=== PATIENT | female | born 2000 | race Caucasian/White ===

== ENCOUNTER 2025-04-20 02:47 | Emergency (ER) | payer MEDICAID, SELFPAY ==
[2025-04-20 02:47] VITALS: BP 134/86; PULSE 110; RESP 20; TEMP 36.7; O2SAT 98
[2025-04-20 02:48] VITALS: BMI 31.7
--- NOTE | 2025-04-20 03:29 | PD.EDUPEX ---
Upper Extremity Injury RME/HPI General Chief Complaint: Extremity Injury, Upper Stated Complaint: NON TRAUMATIC LEFT SHOULDER PAIN Time Seen by Provider: 04/20/25 03:26 Arrival date/time: 04/20/25 02:47 24F with history of psych presents to ED with L shoulder/neck pain w/o fall/trauma. Patient states she had a panic attack earlier today and her boyfriend made her stretch there to calm her down. Pain is worse with movement. Limitations: no limitations Related Data Home Medications ?Medication ?Instructions ?Recorded ?Confirmed Vitamin * 1 tab PO QDAY #0 tabs 05/16/17 08/06/17 Previous Rx's ?Medication ?Instructions ?Recorded baclofen 5 mg tablet 5 mg PO BID PRN muscle spasm #14 04/20/25 tabs Allergies Allergy/AdvReac Type Severity Reaction Status Date / Time cephalexin Allergy Intermediate HIVES Verified 01/18/23 14:29 Review of Systems Review of Systems Systems Reviewed: All systems reviewed, normal except as documented Musculoskeletal Musculoskeletal: Reports as per HPI and Reports arthralgias Past Medical History Past Medical History NEUROLOGIC: Negative Neurological Disorders CARDIAC: Negative Cardiac Disorders RESPIRATORY: Negative Asthma GASTROINTESTINAL: Negative Gastrointestinal Disorders, Hepatitis or Colorectal Cancer GENITOURINARY: Negative Genitourinary Disorders, Renal Disease or Prostate Cancer REPRODUCTIVE: Negative Breast Cancer, Endometriosis, Pelvic Inflammatory Disease, Previous Pregnancies, Testicular Cancer or Uterine Prolapse MUSCULOSKELETAL: Positive Musculoskeletal Disorders and Fractures (COLLARBONE, LEFT WRIST); Negative Bone Cancer ENDOCRINE: Positive Endocrine Disorders and Hypoglycemia (NO MEDS); Negative Diabetes Mellitus Type 2 HEMATOLOGIC: Negative Blood Disorders or Sickle Cell Disease PSYCHO/SOCIAL: Positive Depression (WAS ON PROZAC AND ZOLOFT BUT NOT CURRENTLY) and Anxiety OTHER HISTORY: Positive Falls (MORE THAN 5 YEARS AGO); Negative Autoimmune Disease, Down Syndrome, Developmental Delay, Blood Transfusions, Blood Transfusion Reaction, Anesthesia Reactions, Organ Transplant, Chemotherapy, Radiation Therapy, Hyperbaric Therapy, MRSA, VRSA, Vancomycin-Resistant Enterococci, Human Immunodeficiency Virus (HIV), Chicken Pox, Measles, Mumps, Rubella ([place] Measles), Pertussis, Clostridium Difficile, Breast Cancer, Cervical Cancer, Colorectal Cancer, Lung Cancer, Ovarian Cancer, Prostate Cancer or Testicular Cancer Family History FAMILY HISTORY: Positive Family Psychiatric Problems (MOTHER/BIPOLAR) and Family Respiratory Disorders (ASTHMA); Negative Family Cardiac Disorders, Family Gastrointestinal Problems, Family Cancer, Family Surgery or Family Anesthesia Reaction Surgical History SURGICAL: Negative Section or Organ Transplant Social History SMOKING STATUS: Current every day smoker ED Exam General Limitations: Present no limitations General appearance: Present alert and in no apparent distress Head Head exam: Present atraumatic Neck Neck exam: Present normal inspection, full ROM and trachea midline Chest Chest inspection: Present normal inspection and symmetric chest wall rise Neurological Exam Neurological exam: Present alert and oriented X3 Psychiatric Psychiatric exam: Present normal affect and normal mood Skin Skin exam: Present warm, dry, intact and normal color Course Quality Measures none Orders Category Date Time Status Baclofen [Lioresal] Med 04/20/25 03:27 Discontinued 10 mg PO X1 ONE HYDROcodone*/APAP 5/325 [[place] 5/325] Med 04/20/25 03:27 Discontinued 1 tab PO X1 ONE Vital Signs Vital signs: Vital Signs Temperature 98.0 F 04/20/25 02:47 Pulse Rate 110 H 04/20/25 02:47 Respiratory Rate 20 04/20/25 02:47 Blood Pressure 134/86 H 04/20/25 02:47 Pulse Oximetry (%) 98 04/20/25 02:47 Oxygen Delivery Method Room Air 04/20/25 02:47 O2 at 98% on RA and WNLs Extremity Injury MDM Narrative MDM Narrative:: 24F with history of psych presents to ED with L shoulder/neck pain w/o fall/trauma. Patient states she had a panic attack earlier today and her boyfriend made her stretch there to calm her down. Pain is worse with movement. Physical exam reveals well-appearing female. No skin redness per patient. Normal WOB. Speech normal. Patient is afebrile, calm, and alert. Meds and chief counsel given. Patient data External records reviewed:: [facility] previous records Clinical information provided by:: patient Social determinants that could affect healthcare access:: mental health Patient has the following chronic illnesses:: panic disoder How is presenting disease/condition affected by chronic disease/condition?: exacerbated by Evaluation data The following diagnostics were reviewed and interpreted by me:: other (specify) (none) Lab and/or radiology exams considered but not ordered:: not ordered Interpretation Summary: n/a Medications / Prescriptions Medications or Prescriptions considered but not ordered:: ordered Medication administrations:: Medication Administration History Discontinued Medications Hydrocodone Bitart/Acetaminophen (Hydrocodone/Apap 5/325 Tablet) 1 tab PO X1 ONE Stop: 04/20/25 03:28 Baclofen (Baclofen 10 Mg Tablet) 10 mg PO X1 ONE Stop: 04/20/25 03:28 above Consultations Consultation(s) initiated? (list below): No Diagnosis Upper Extremity Injury Differential Diagnosis: dislocation of shoulder, fracture of humerus, fracture of clavicle and other (shoulder pain) Most likely diagnosis given after review of the tests above:: shoulder pain Admission Indicated Admission indicated?: not indicated Admission Request Was there a request for admission?: No Disposition Plan Disposition Plan: Discharge Discharge Attestation Discharge Attestation: The patient and all family members were given an opportunity to ask questions and understood the discharge instructions. Discharge instructions specifically effects, indications for sooner follow up or return to the emergency department, and the expected course of current diagnosis. Patient condition: Stable Discharge Plan Plan Patient Disposition: HOME (Self Care) Discharge Disposition comment: Stable Prescriptions/Referrals Prescriptions/Med Rec: New baclofen 5 mg tablet 5 mg PO BID PRN (Reason: muscle spasm) Qty: 14 0RF No Action Vitamin * 1 EACH tablet 1 tab PO QDAY Qty: 0 Problem List Clinical Impression: Left shoulder pain Patient/Caregiver Discharge Instructions Education Materials: ED Arthralgia Additional Instructions: Please follow-up with PCP within 24-48 hours and return immediately if symptoms worsen. If problem persists, recommend outpatient PT and/or MRI follow-up. In the meantime, rest, use ice/heat, and/or compression. Muscle relaxer will make you sleepy so try to take it at night. Print Language: Azeri Stand Alone Forms: Patient Portal Info Letter MARION/KISHA Supervising Physician MARION/KISHA Supervising Physician: Dr. Tucker
[2025-04-20] MEDS: HYDROcodone/APAP 5/325 TABLET 1 TAB PO (03:44)
[2025-04-20] MEDS: BACLOFEN 10 MG TABLET PO (03:45)
== END 2025-04-20 03:59 | disposition home or self-care (01) ==
LOC: SERX 03:54
PROVIDERS: Emergency Provider Emergency Medicine; PCP Nurse Practitioner Family
DX: M25.512 Pain in left shoulder (principal); F41.0 Panic disorder [episodic paroxysmal anxiety]
CPT/HCPCS: 99281; A9270

== ENCOUNTER 2025-04-26 14:55 | Emergency (ER) | payer MEDICAID, SELFPAY ==
[2025-04-26 14:55] VITALS: BMI 31.7
[2025-04-26 15:23] VITALS: BP 133/89; PULSE 104; RESP 18; TEMP 36.7; O2SAT 98; BMI 29.4
--- NOTE | 2025-04-26 15:26 | XR_ITS ---
Examination: Abdomen sonogram, Limited Exam date and time: April 26, 2025, 1554 hours INDICATIONS: Abdominal pain after eating beginning 1 week ago Technique: Real-time bennett scale transabdominal sonographic images of the upper abdomen obtained. Findings: Normal gallbladder. Normal common bile duct 0.3 cm Pancreatic head 2.4 cm Liver 15.1 cm smooth contour no focal liver lesions Normal hepatopetal portal venous flow Patent IVC IMPRESSION: Normal gallbladder
--- NOTE | 2025-04-26 15:27 | EDNOTE_ITS ---
ED Abdominal Pain RME/HPI General Chief Complaint: Abdominal Pain Stated complaint: ABD PAIN WITH EATING FOR 1 WEEK Time seen by provider: 04/26/25 15:21 Arrival date/time: 04/26/25 14:55 52-year-old female patient came in for evaluation regarding epigastric pain. Patient has been having epigastric pain, lasting for 2 to 3 hours usually after eating, described as crampy, severity moderate. Denies any vomiting denies any fever denies any other complaints. Her epigastric pain has been ongoing for the last 1 week. Was seen by PCP and was advised to come to the emergency room for ultrasound. Of the gallbladder Related Data Home Medications ?Medication ?Instructions ?Recorded ?Confirmed Vitamin * 1 tab PO QDAY #0 tabs 08/06/17 Previous Rx's ?Medication ?Instructions ?Recorded baclofen 5 mg tablet 5 mg PO BID PRN muscle spasm #14 04/20/25 tabs famotidine 40 mg tablet (Pepcid) 40 mg PO BID #20 tabs 04/26/25 Allergies Allergy/AdvReac Type Severity Reaction Status Date / Time cephalexin Allergy Severe HIVES Verified 04/26/25 14:57 Review of Systems Review of Systems Narrative Review of Systems: Review of system reviewed and within normal limits except mentioned in HPI ED Exam Narrative Physical exam: VITAL SIGNS: Reviewed. GENERAL APPEARANCE: Alert and interactive, follows commands, no acute distress, HEAD AND FACE: Non-traumatic. ENT: PERRL, pink conjunctivitis, eyelid no trauma, Mucous membrane moist. NECK: Supple, nontender, no nuchal rigidity. CHEST: No tenderness, no crepitus, no paradoxical movement, no retractions. LUNGS: Clear, well ventilated, symmetric, no rales, no wheezing, no ronchi, no stridor, good breath sounds bilaterally. HEART: Regular rate, regular rhythm, no murmur, no gallops. ABDOMEN: Soft, positive bowel sounds, nondistended, no guarding, epigastric tenderness, no rebound, no masses, RECTAL: Deferred. GENITAL: Deferred. NEUROLOGICAL: Gross motor function intact sensory function intact, Appropriate for age. MUSCULOSKELETAL: low back nontender, full range of motion. EXTREMITIES: Nontender, full range of motion. SKIN: Color pink, dry, no rash, no lacerations, no abrasions, no contusions. LYMPHATICS: Deferred. Course Quality Measures none Orders Category Date Time Status US gall bladder Stat Exams 04/26/25 15:26 Completed CBC [CBC] Stat Lab 04/26/25 15:45 Completed CMP [Comprehensive Metabolic Panel] Stat Lab 04/26/25 15:45 Completed HCG Qualitative,Urine Stat Lab 04/26/25 16:19 Completed Lipase Stat Lab 04/26/25 15:45 Completed UA, C/S IF [Urinalysis, C/S if Indicated] Stat Lab 04/26/25 16:19 Completed Dicyclomine [Bentyl] Med 04/26/25 15:26 Discontinued 20 mg PO X1 ONE Famotidine [Pepcid] Med 04/26/25 15:26 Discontinued 40 mg PO X1 ONE Vital Signs Vital signs: Vital Signs Temperature 98.1 F 04/26/25 15:23 Pulse Rate 104 H 04/26/25 15:23 Respiratory Rate 18 04/26/25 15:23 Blood Pressure 133/89 H 04/26/25 15:23 Pulse Oximetry (%) 98 04/26/25 15:23 Oxygen Delivery Method Room Air 04/26/25 15:23 Abdominal Pain MDM MDM Narrative MDM Narrative:: 04/26/25 14:55 52-year-old female patient came in for evaluation regarding epigastric pain. Patient has been having epigastric pain, lasting for 2 to 3 h ours usually after eating, described as crampy, severity moderate. Denies any vomiting denies any fever denies any other complaints. Her epigastric pain has been ongoing for the last 1 week. Was seen by PCP and was advised to come to the emergency room for ultrasound. Of the gallbladder Ultrasound of the gallbladder came back unremarkable. Patient's workup all came back normal also. Patient is probably having gastritis. Advised the patient to avoid eating red meat for now see what helps her. Patient appears nontoxic and hemodynamically stable .Decision to discharge the patient. The patient/family was given an opportunity to ask questions and understood their discharge instructions. Discharge instructions specifically included follow up provider and time frame, current and/or new medications and possible side effects, indications for sooner follow up or return to the emergency department, and the expected course of current diagnosis. Patient reports feeling better as well and giving evidence of significant clinical improvement, I believe patient is now a candidate for discharge. Patient data External records reviewed:: None Clinical information provided by:: patient Social determinants that could affect healthcare access:: none Patient has the following chronic illnesses:: Stable How is presenting disease/condition affected by chronic disease/condition?: no chronic disease Evaluation data The following diagnostics were reviewed and interpreted by me:: lab results and radiology exam(s) Lab and/or radiology exams considered but not ordered:: See results MDM Interpretation Summary: See results MDM Medications / Prescriptions Medications or Prescriptions considered but not ordered:: None Medication administrations:: Medication Administration History Discontinued Medications Dicyclomine HCl (Dicyclomine 10 Mg Capsule) 20 mg PO X1 ONE Stop: 04/26/25 15:27 Last Admin: 04/26/25 16:13 Dose: 20 mg Documented By: ED Famotidine (Famotidine 20 Mg Tablet) 40 mg PO X1 ONE Stop: 04/26/25 15:27 Last Admin: 04/26/25 16:14 Dose: 40 mg Documented By: ED Napoleon and Frantz with significant improvement of symptoms Consultations Consultation(s) initiated? (list below): No Diagnosis Differential diagnosis abdominal pain: abdominal pain and gastroenteritis Most likely diagnosis given after review of the tests above:: Epigastric pain, gastritis Admission Indicated Admission indicated?: not indicated Admission Request Was there a request for admission?: No Disposition Plan Disposition Plan: Discharge Discharge Attestation Discharge Attestation: The patient was given an opportunity to ask questions and understood the discharge instructions. Discharge instructions specifically effects, indica tions for sooner follow up or return to the emergency department, and the expected course of current diagnosis. Patient condition: Stable Discharge Plan Plan Patient Disposition: HOME (Self Care) Discharge Disposition comment: stable Prescriptions/Referrals Prescriptions/Med Rec: New famotidine [Pepcid] 40 mg tablet 40 mg PO BID Qty: 20 0RF No Action Vitamin * 1 EACH tablet 1 tab PO QDAY Qty: 0 baclofen 5 mg tablet 5 mg PO BID PRN (Reason: muscle spasm) Qty: 14 0RF Referrals: Krysta Armenta NP [Primary Care Provider] - In 1 week Problem List Clinical Impression: Acute epigastric pain Patient/Caregiver Discharge Instructions Discharge Activity: activity as tolerated Education Materials: ED Epigastric Pain (Uncertain Cause) Additional Instructions: Thank you for the opportunity for serving you today. You are stable for discharged . You are advised to: Follow-up with your PCP in 1 to 2 days Return to ED for worsening of symptoms Increase oral fluids Take medication as prescribed Please avoid eating red meat for now Print Language: Telugu Stand Alone Forms: Lashanda Award Info., Patient Portal Info Letter PA/CAN CLOSING MACHINE OPERATOR Supervising Physician MARION/CAN CLOSING MACHINE OPERATOR Supervising Physician: MD Antoine
[2025-04-26 15:54] LABS: Basophils # (Auto) 0.1 Thou/mm3 (0.0-0.2); Basophils % (Auto) 0 % (0-2.5); Eosinophils # (Auto) 0.6 Thou/mm3 (0.0-0.5); Eosinophils % (Auto) 4 % (0-10); Hematocrit 43.4 % (36.0-46.0); Hemoglobin 15.3 g/dL (12.0-16.0); Immature Granulocytes Auto 0.03 Thou/mm3 (0.00-0.00); Lymphocytes # (Auto) 1.9 Thou/mm3 (1.0-4.8); Lymphocytes % (Auto) 14 % (10-50); Mean Corpuscular HGB Conc 35.3 g/dl (31.0-37.0); Mean Corpuscular Hemoglobin 31.5 pg (25.0-35.0); Mean Corpuscular Volume 90 fL (80-100); Monocytes # (Auto) 0.8 Thou/mm3 (0.0-0.8); Monocytes % (Auto) 5 % (0-12); Neutrophils # (Auto) 10.6 Thou/mm3 (1.8-7.7); Neutrophils % (Auto) 76 % (37-80); Nucleated Red Blood Cell # 0.00 Thou/mm3 (0.00-0.00); Nucleated Red Blood Cell % 0 /100 WBC (0); Platelet Count 192 Thou/mm3 (140-440); RDW Standard Deviation 38.9 fL (36.4-46.3); Red Blood Count 4.85 Miln/mm3 (4.00-5.20); White Blood Count 14.0 Thou/mm3 (3.6-11.0)
[2025-04-26 16:11] LABS: Alanine Aminotransferase 16 U/L (10-49); Albumin, Serum 5.0 gm/dL (3.5-5.0); Albumin/Globulin Ratio 2.5 (1.2-2.2); Alkaline Phosphatase 101 U/L (46-116); Anion Gap 9 (7-16); Aspartate Amino Transferase 22 U/L (0-34); BUN/Creatinine Ratio 11 Ratio (12-20); Bilirubin,Total 0.7 mg/dL (0.3-1.2); Blood Urea Nitrogen 11 mg/dL (9-23); Calcium 9.9 mg/dL (8.3-10.6); Calcium (Corrected) 9.9 mg/dL (8.5-10.1); Carbon Dioxide 25.4 mMol/L (20.0-31.0); Chloride 107 mMol/L (98-107); Creatinine (Component) 1.0 mg/dL (0.6-1.3); Estimated Creatinine Clearance 98.8 mL/min (>60); Globulin 2.0 gm/dL (2.3-3.5); Glucose 87 mg/dL (74-106); Lipase 35 U/L (12-53); Osmolality,Calculated 279 (275-295); Potassium 4.5 mMol/L (3.4-5.1); Sodium 141 mMol/L (136-145); Total Protein 7.0 gm/dL (5.7-8.2); eGFR > 60 See Note
[2025-04-26] MEDS: DICYCLOMINE 10 MG CAPSULE 20 MG PO (16:13)
[2025-04-26] MEDS: FAMOTIDINE 20 MG TABLET 40 MG PO (16:14)
[2025-04-26 16:26] LABS: Collection Type, Urine Clean Catch; WBC,Urine 0 /hpf (0-5)
[2025-04-26 16:37] LABS: Bilirubin,Urine Negative (Negative); Blood,Urine 2+ (Negative); Clarity,Urine Clear (Clear/Hazy); Color,Urine Colorless (Lt Yel-Yel); Culture Indicated,Urine Not Indicated; Glucose, Urine Negative (Negative); Ketones,Urine Trace (Negative); Leukocyte Esterase,Urine Negative (Negative); Nitrite,Urine Negative (Negative); PH,Urine 6.0 (5.0-7.0); Protein,Urine Negative (Neg - Trace); RBC,Urine 1 /hpf (0-3); Specific Gravity,Urine 1.007 (1.001-1.035); Squamous Epithelial Cell,Urine < 1 /hpf (0-5); Urobilinogen,Urine Negative mg/dL (0.0-1.0)
[2025-04-26 16:44] LABS: HCG Qualitative,Urine Negative
--- NOTE | 2025-04-26 17:01 | PRELIM_ITS ---
Right upper quadrant abdominal ultrasound. April 26, 2025 1554 hours Clinical history: Epigastric pain Technique: Grayscale and color flow images of the right upper quadrant are provided. Hepatic and portal veins were also imaged with color flow images. Comparison: No prior study is available for comparison. Findings: The liver is normal in echogenicity. No intrahepatic biliary ductal dilatation.The main portal vein is patent and demonstrates hepatopetal flow.No gallbladder calculus, wall thickening or pericholecystic fluid is demonstrated. The common bile duct is normal in caliber at 0.2 cm. The pancreas is unremar kable to the extent visualized. Impression: No sonographic evidence of cholelithiasis, acute cholecystitis or biliary obstruction. Report Electronically Signed By: Manny Irwin 04/26/2025 5:01:24 PM [EST]
== END 2025-04-26 20:10 | disposition home or self-care (01) ==
PROVIDERS: Nurse Practitioner Family; Emergency Provider Emergency Medicine; PCP Nurse Practitioner Family
DX: R10.13 Epigastric pain (principal)
CPT/HCPCS: 36415; 76705; 80053; 81001; 81025; 83690; 85025; 99283; A9270

== ENCOUNTER 2025-05-02 23:49 | Emergency (ER) | payer MEDICAID, SELFPAY ==
[2025-05-02 23:50] VITALS: BMI 31.7
[2025-05-03 00:04] VITALS: BP 133/97; PULSE 93; RESP 18; TEMP 36.6; O2SAT 97
--- NOTE | 2025-05-03 00:13 | EDNOTE_ITS ---
ED Abdominal Pain RME/HPI General Chief Complaint: Abdominal Pain Stated complaint: ABDOMINAL PAIN Time seen by provider: 05/03/25 00:05 Arrival date/time: 05/02/25 23:49 Source: patient, RN notes reviewed and old records reviewed Mode of arrival: ambulatory Limitations: no limitations RME / HPI RME / HPI narrative: 24yof presents to ED for nausea and epigastric pain that initiated tonight. Symptoms initiated after eating Ramen noodles. Patient was evaluated in ED 04/26 for same complaint, ED workup negative. No fever, vomiting/diarrhea or urinary symptoms reported. Patient took Tums, Pepcid and Gas-X last night without relief. Related Data Home Medications ?Medication ?Instructions ?Recorded ?Confirmed Vitamin * 1 tab PO QDAY #0 tabs 08/06/17 Previous Rx's ?Medication ?Instructions ?Recorded baclofen 5 mg tablet 5 mg PO BID PRN muscle spasm #14 04/20/25 tabs famotidine 40 mg tablet (Pepcid) 40 mg PO BID #20 tabs 04/26/25 acetaminophen 500 mg tablet 1,000 mg (2 x 500 mg) PO Q 6H PRN 05/03/25 (Tylenol Extra Strength) pain #30 tabs omeprazole 40 mg capsule,delayed 40 mg PO QDAY #30 cap s 05/03/25 release ondansetron 4 mg disintegrating 4 mg PO Q6H PRN nausea and 05/03/25 tablet vomiting #10 tabs sucralfate 1 gram tablet (Carafate) 1 g PO Q6H PRN abd ominal pain #60 05/03/25 tabs Allergies Allergy/AdvReac Type Severity Reaction Status Date / Time cephalexin Allergy Severe HIVES Verified 04/26/25 14:57 Review of Systems Review of Systems Systems Reviewed: All systems reviewed, normal except as documented Constitutional Constitutional: Denies chills and Denies fever(s) Gastrointestinal Gastrointestinal: Reports abdominal pain, Denies loose stools, Reports nausea and Denies vomiting Genitourinary Genitourinary: Denies dysuria, Denies flank pain and Denies hematuria Past Medical History Past Medical History GASTROINTESTINAL: Positive Obesity ENDOCRINE: Positive Hypoglycemia (No meds) PSYCHO/SOCIAL: Positive Depression and Anxiety Social History SMOKING STATUS: Current every day smoker (vapes) SUBSTANCE USE: does not use ALCOHOL: Current (social) ED Exam General Limitations: Present no limitations General appearance: Present alert and in no apparent distress Head Head exam: Present atraumatic and normocephalic Eye Eye exam: Present normal appearance, PERRL and EOMI ENT ENT exam: Present normal exam and mucous membranes moist Neck Neck exam: Present normal inspection and full ROM Chest Chest inspection: Present normal inspection and symmetric chest wall rise Respiratory Respiratory exam: Present normal lung sounds bilaterally; Absent respiratory distress Cardiovascular Cardiovascular exam: Present regular rate and normal rhythm Abdominal Exam Abdominal exam: Present soft and tenderness (Mild, epigastric); Absent distention, guarding or rebound Extremities Exam Extremities exam: Present normal inspection and full ROM Neurological Exam Neurological exam: Present alert and oriented X3 Psychiatric Psychiatric exam: Present normal affect and normal mood Skin Skin exam: Present warm, dry, intact and normal color Course Quality Measures none Orders Category Date Time Status CBC Stat Lab 05/03/25 00:24 Completed CMP [Comprehensive Metabolic Panel] Stat Lab 05/03/25 00:24 Completed HCG,Qualitative Serum Stat Lab 05/03/25 00:24 Completed Lipase Stat Lab 05/03/25 00:24 Completed Ketorolac Inj [Toradol Inj] Med 05/03/25 00:12 Discontinued 30 mg IM X1 ONE Lidocaine 2% Viscous [Xylocaine 2% Viscous] Med 05/03/25 00:12 Discontinued 15 ml PO X1 ONE Ondansetron Odt [Zofran Odt] Med 05/03/25 00:12 Discontinued 4 mg PO X1 ONE Sucralfate Susp [Carafate Susp] Med 05/03/25 00:12 Discontinued 1 gm PO X1 ONE mg Hyd/Al Hyd/Mae Susp [Maalox Susp] Med 05/03/25 00:12 Discontinued 30 ml PO X1 ONE Vital Signs Vital signs: Vital Signs Temperature 98 F 05/03/25 00:04 Pulse Rate 93 05/03/25 00:04 Respiratory Rate 18 05/03/25 00:04 Blood Pressure 133/97 H 05/03/25 00:04 Pulse Oximetry (%) 97 05/03/25 00:04 Oxygen Delivery Method Room Air 05/03/25 00:04 Abdominal Pain MDM MDM Narrative MDM Narrative:: 24yof presents to ED for nausea and epigastric pain that initiated tonight. Symptoms initiated after eating Ramen noodles. Patient was evaluated in ED 04/26 for same complaint, ED workup negative. No fever, vomiting/diarrhea or urinary symptoms reported. Patient took Tums, Pepcid and Gas-X last night without relief. Patient reassessed. She is feeling better, symptoms improved. Labs and exam reassuring. Encouraged adequate fluids, symptomatic treatment prn. Recommended close follow-up with GI if symptoms persist. Stable for discharge, RTED precautions given. Patient data External records reviewed:: [facility] previous records (ED visit 04/26/2025 for epigastric abdominal pain) Clinical information provided by:: patient Social determinants that could affect healthcare access:: other (specify) (Poor access to healthcare) Patient has the following chronic illnesses:: Obesity How is presenting disease/condition affected by chronic disease/condition?: uneffected by Evaluation data The following diagnostics were reviewed and interpreted by me:: lab results Lab and/or radiology exams considered but not ordered:: CT abdomen/pelvis: Nonsurgical abdomen on exam Gallbladder ultrasound: Reviewed imaging from 04/26 ED visit Interpretation Summary: No leukocytosis No anemia LFTs and lipase wnl Negative upreg Medications / Prescriptions Medications or Prescriptions considered but not ordered:: No antibiotics recommended at this time Medication administrations:: Medication Administration History Discontinued Medications Al Hydrox/Mg Hydrox/Simethicone (Mg Hyd/Al Hyd/Mae (Maalox Reg) Susp 30 Ml Udc) 30 ml PO X1 ONE Stop: 05/03/25 00:13 Last Admin: 05/03/25 00:51 Dose: 30 ml Documented By: OA Ketorolac Tromethamine (Ketorolac Inj 30 Mg/Ml Vial) 30 mg IM X1 ONE Stop: 05/03/25 00:13 Last Admin: 05/03/25 00:51 Dose: 30 mg Documented By: OA Lidocaine HCl (Lidocaine Viscous 2% 15 Ml Udc) 15 ml PO X1 ONE Stop: 05/03/25 00:13 Last Admin: 05/03/25 00:51 Dose: 15 ml Documented By: OA Ondansetron HCl (Ondansetron Odt 4 Mg Tabrap) 4 mg PO X1 ONE; Protocol Stop: 05/03/25 00:13 Last Admin: 05/03/25 00:50 Dose: 4 mg Documented By: OA Sucralfate (Sucralfate Susp 1 Gm/10 Ml Udc) 1 gm PO X1 ONE Stop: 05/03/25 00:13 Last Admin: 05/03/25 01:06 Dose: 1 gm Documented By: OA Above medications administered in ED Consultations Consultation(s) initiated? (list below): No Diagnosis Differential diagnosis abdominal pain: other (Gastritis, PUD, pancreatitis, gastroenteritis, viral illness, cholelithiasis, cholecystitis) Most likely diagnosis given after review of the tests above:: Gastritis Admission Indicated Admission indicated?: not indicated Admission Request Was there a request for admission?: No Disposition Plan Disposition Plan: Discharge Discharge Attestation Discharge Attestation: The patient and all family members were given an opportunity to ask questions and understood the discharge instructions. Discharge instructions specifically effects, indications for sooner follow up or return to the emergency department, and the expected course of current diagnosis. Patient condition: Stable Discharge Plan Plan Patient Disposition: HOME (Self Care) Patient condition on transfer: Stable Prescriptions/Referrals Prescriptions/Med Rec: New omeprazole 40 mg capsule,delayed release(DR/EC) 40 mg PO QDAY Qty: 30 0RF sucralfate [Carafate] 1 gram tablet 1 g PO Q6H PRN (Reason: abdominal pain) Qty: 60 0RF Rx Instructions: Take prior to meals and before bedtime as needed for abdominal pain. acetaminophen [Tylenol Extra Strength] 500 mg tablet 1,000 mg PO Q6H PRN (Reason: pain) Qty: 30 0RF ondansetron 4 mg tablet,disintegrating 4 mg PO Q6H PRN (Reason: nausea and vomiting) Qty: 10 0RF No Action Vitamin * 1 EACH tablet 1 tab PO QDAY Qty: 0 baclofen 5 mg tablet 5 mg PO BID PRN (Reason: muscle spasm) Qty: 14 0RF famotidine [Pepcid] 40 mg tablet 40 mg PO BID Qty: 20 0RF Referrals: Maryellen Felder MD [Physician, Gastroenterology] Referral Note: Call to schedule an appointment as needed. Krysta Armenta NP [Primary Care Provider] - In 1 week Problem List Clinical Impression: Gastritis Patient/Caregiver Discharge Instructions Education Materials: ED Gastritis (Adult) Print Language: Icelandic Stand Alone Forms: Lashanda Award Info., Patient Portal Info Letter PA/PREVENTIVE MAINTENANCE ENGINEER Supervising Physician PA/PREVENTIVE MAINTENANCE ENGINEER Supervising Physician: Antoine
[2025-05-03 00:38] LABS: Basophils # (Auto) 0.0 Thou/mm3 (0.0-0.2); Basophils % (Auto) 0 % (0-2.5); Eosinophils # (Auto) 0.5 Thou/mm3 (0.0-0.5); Eosinophils % (Auto) 5 % (0-10); Hematocrit 42.2 % (36.0-46.0); Hemoglobin 15.3 g/dL (12.0-16.0); Immature Granulocytes Auto 0.03 Thou/mm3 (0.00-0.00); Lymphocytes # (Auto) 1.6 Thou/mm3 (1.0-4.8); Lymphocytes % (Auto) 16 % (10-50); Mean Corpuscular HGB Conc 36.3 g/dl (31.0-37.0); Mean Corpuscular Hemoglobin 32.1 pg (25.0-35.0); Mean Corpuscular Volume 89 fL (80-100); Monocytes # (Auto) 0.5 Thou/mm3 (0.0-0.8); Monocytes % (Auto) 5 % (0-12); Neutrophils # (Auto) 7.6 Thou/mm3 (1.8-7.7); Neutrophils % (Auto) 74 % (37-80); Nucleated Red Blood Cell # 0.00 Thou/mm3 (0.00-0.00); Nucleated Red Blood Cell % 0 /100 WBC (0); Platelet Count 204 Thou/mm3 (140-440); RDW Standard Deviation 38.3 fL (36.4-46.3); Red Blood Count 4.76 Miln/mm3 (4.00-5.20); White Blood Count 10.3 Thou/mm3 (3.6-11.0)
[2025-05-03] MEDS: ONDANSETRON ODT 4 MG TABRAP PO (00:50)
[2025-05-03] MEDS: LIDOCAINE VISCOUS 2% 15 ML UDC PO (00:51)
[2025-05-03] MEDS: KETOROLAC INJ 30 MG/ML VIAL IM (00:51)
[2025-05-03] MEDS: MG HYD/AL HYD/SIME (Maalox Reg) SUSP 30 ML UDC PO (00:51)
[2025-05-03 00:55] LABS: Alanine Aminotransferase 35 U/L (10-49); Albumin, Serum 4.6 gm/dL (3.5-5.0); Albumin/Globulin Ratio 2.3 (1.2-2.2); Alkaline Phosphatase 83 U/L (46-116); Anion Gap 8 (7-16); Aspartate Amino Transferase 37 U/L (0-34); BUN/Creatinine Ratio 9 Ratio (12-20); Bilirubin,Total 0.6 mg/dL (0.3-1.2); Blood Urea Nitrogen 8 mg/dL (9-23); Calcium 9.3 mg/dL (8.3-10.6); Calcium (Corrected) 9.3 mg/dL (8.5-10.1); Carbon Dioxide 26.7 mMol/L (20.0-31.0); Chloride 107 mMol/L (98-107); Creatinine (Component) 0.9 mg/dL (0.6-1.3); Estimated Creatinine Clearance 99.3 mL/min (>60); Globulin 2.0 gm/dL (2.3-3.5); Glucose 125 mg/dL (74-106); HCG,Qualitative Serum Negative; Lipase 37 U/L (12-53); Osmolality,Calculated 282 (275-295); Potassium 3.5 mMol/L (3.4-5.1); Sodium 142 mMol/L (136-145); Total Protein 6.6 gm/dL (5.7-8.2); eGFR > 60 See Note
[2025-05-03] MEDS: SUCRALFATE SUSP 1 GM/10 ML UDC PO (01:06)
== END 2025-05-03 01:47 | disposition home or self-care (01) ==
PROVIDERS: Physician Assistant; Emergency Provider Emergency Medicine; PCP Nurse Practitioner Family
DX: K29.70 Gastritis, unspecified, without bleeding (principal)
CPT/HCPCS: 36415; 80053; 83690; 84703; 85025; 96372; 99283; J1885; J3490; Q0162; A9270

== ENCOUNTER 2025-06-13 10:08 | Emergency (ER) | payer MEDICAID, SELFPAY ==
[2025-06-13 10:09] VITALS: BMI 31.7
[2025-06-13 10:16] VITALS: BP 145/84; PULSE 98; RESP 16; TEMP 36.7; O2SAT 98
--- NOTE | 2025-06-13 10:25 | EKG_ITS ---
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
--- NOTE | 2025-06-13 10:25 | XR_ITS ---
EXAMINATION: PA lateral chest 2 views TECHNIQUE: Upright PA lateral chest 2 views Date and time: June 13, 2025, 10:50 a.m. INDICATIONS: Chest pain cardiac palpitations today. FINDINGS: Normal heart size Lungs are clear. Osseous structures are intact IMPRESSION: No active disease
[2025-06-13 11:07] LABS: Basophils # (Auto) 0.1 Thou/mm3 (0.0-0.2); Basophils % (Auto) 1 % (0-2.5); Eosinophils # (Auto) 0.4 Thou/mm3 (0.0-0.5); Eosinophils % (Auto) 5 % (0-10); Hematocrit 43.1 % (36.0-46.0); Hemoglobin 15.2 g/dL (12.0-16.0); Immature Granulocytes Auto 0.02 Thou/mm3 (0.00-0.00); Lymphocytes # (Auto) 1.8 Thou/mm3 (1.0-4.8); Lymphocytes % (Auto) 20 % (10-50); Mean Corpuscular HGB Conc 35.3 g/dl (31.0-37.0); Mean Corpuscular Hemoglobin 31.9 pg (25.0-35.0); Mean Corpuscular Volume 90 fL (80-100); Monocytes # (Auto) 0.5 Thou/mm3 (0.0-0.8); Monocytes % (Auto) 6 % (0-12); Neutrophils # (Auto) 6.1 Thou/mm3 (1.8-7.7); Neutrophils % (Auto) 69 % (37-80); Nucleated Red Blood Cell # 0.00 Thou/mm3 (0.00-0.00); Nucleated Red Blood Cell % 0 /100 WBC (0); Platelet Count 209 Thou/mm3 (140-440); RDW Standard Deviation 40.9 fL (36.4-46.3); Red Blood Count 4.77 Miln/mm3 (4.00-5.20); White Blood Count 8.9 Thou/mm3 (3.6-11.0)
[2025-06-13 11:23] LABS: Alanine Aminotransferase 12 U/L (10-49); Albumin, Serum 4.4 gm/dL (3.5-5.0); Albumin/Globulin Ratio 1.6 (1.2-2.2); Alkaline Phosphatase 76 U/L (46-116); Anion Gap 6 (7-16); Aspartate Amino Transferase 14 U/L (0-34); BUN/Creatinine Ratio 13 Ratio (12-20); Bilirubin,Total 0.6 mg/dL (0.3-1.2); Blood Urea Nitrogen 12 mg/dL (9-23); Calcium 9.2 mg/dL (8.3-10.6); Calcium (Corrected) 9.2 mg/dL (8.5-10.1); Carbon Dioxide 27.2 mMol/L (20.0-31.0); Chloride 107 mMol/L (98-107); Creatinine (Component) 0.9 mg/dL (0.6-1.3); Estimated Creatinine Clearance 99.3 mL/min (>60); Globulin 2.7 gm/dL (2.3-3.5); Glucose 90 mg/dL (74-106); Osmolality,Calculated 279 (275-295); Potassium 4.5 mMol/L (3.4-5.1); Sodium 140 mMol/L (136-145); Total Protein 7.1 gm/dL (5.7-8.2); Troponin I < 0.002 ng/mL (0.0-0.045); eGFR > 60 See Note
[2025-06-13 11:38] LABS: HCG,Qualitative Serum Negative
--- NOTE | 2025-06-13 11:44 | PD.EDANX ---
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 Patient reports no fever nausea vomiting no dizziness or weakness Limitations: no limitations Related Data Home Medications ?Medication ?Instructions ?Recorded ?Confirmed Vitamin * 1 tab PO QDAY #0 tabs 05/16/17 08/06/17 Previous Rx's ?Medication ?Instructions ?Recorded baclofen 5 mg tablet 5 mg PO BID PRN muscle spasm #14 04/20/25 tabs famotidine 40 mg tablet (Pepcid) 40 mg PO BID #20 tabs 04/26/25 acetaminophen 500 mg tablet 1,000 mg (2 x 500 mg) PO Q6H PRN 05/03/25 (Tylenol Extra Strength) pain #30 tabs omeprazole 40 mg capsule,delayed 40 mg PO QDAY #30 caps 05/03/25 release ondansetron 4 mg disintegrating 4 mg PO Q6H PRN nausea and 05/03/25 tablet vomiting #10 tabs sucralfate 1 gram tablet (Carafate) 1 g PO Q6H PRN abdominal pain #60 05/03/25 tabs Allergies Allergy/AdvReac Type Severity Reaction Status Date / Time cephalexin Allergy Severe HIVES Verified 06/13/25 10:11 Review of Systems Review of Systems Systems Reviewed: All systems reviewed, normal except as documented Constitutional Constitutional: Reports system reviewed and no additional complaints, except as documented, Denies fever(s) and Denies headache(s) Eyes Eyes: Reports system reviewed and no additional complaints, except as documented and Denies blurry vision ENT Ears, Nose, Mouth, and Throat: Reports system reviewed and no additional complaints, except as documented, Denies headache(s), Denies nasal congestion and Denies nasal discharge Cardiovascular Cardiovascular: Reports system reviewed and no additional complaints, except as documented, Reports chest pain and Denies dyspnea Respiratory Respiratory: Reports system reviewed and no additional complaints, except as documented, Denies chest congestion, Denies cough and Denies dyspnea Gastrointestinal Gastrointestinal: Reports system reviewed and no additional complaints, except as documented and Denies abdominal pain Integumentary/Breasts Skin/Breast: Reports system reviewed and no additional complaints, except as documented and Denies rash Neurologic Neurologic: Reports system reviewed and no additional complaints, except as documented, Reports as per HPI and Denies headache(s) Psychiatric Psychiatric: Reports system reviewed and no additional complaints, except as documented and Reports anxiety Past Medical History Past Medical History NEUROLOGIC: Negative Neurological Disorders CARDIAC: Negative Cardiac Disorders RESPIRATORY: Negative Asthma GASTROINTESTINAL: Positive Obesity; Negative Gastrointestinal Disorders, Hepatitis or Colorectal Cancer GENITOURINARY: Negative Genitourinary Disorders, Renal Disease or Prostate Cancer REPRODUCTIVE: Negative Breast Cancer, Endometriosis, Pelvic Inflammatory Disease, Previous Pregnancies, Testicular Cancer or Uterine Prolapse MUSCULOSKELETAL: Positive Musculoskeletal Disorders and Fractures (COLLARBONE, LEFT WRIST); Negative Bone Cancer ENDOCRINE: Positive Endocrine Disorders and Hypoglycemia (No meds); Negative Diabetes Mellitus Type 2 HEMATOLOGIC: Negative Blood Disorders or Sickle Cell Disease PSYCHO/SOCIAL: Positive Depression and Anxiety OTHER HISTORY: Positive Falls (MORE THAN 5 YEARS AGO); Negative Autoimmune Disease, Down Syndrome, Developmental Delay, Blood Transfusions, Blood Transfusion Reaction, Anesthesia Reactions, Organ Transplant, Chemotherapy, Radiation Therapy, Hyperbaric Therapy, MRSA, VRSA, Vancomycin-Resistant Enterococci, Human Immunodeficiency Virus (HIV), Chicken Pox, Measles, Mumps, Rubella (Chinese Measles), Pertussis, Clostridium Difficile, Breast Cancer, Cervical Cancer, Colorectal Cancer, Lung Cancer, Ovarian Cancer, Prostate Cancer or Testicular Cancer Family History FAMILY HISTORY: Positive Family Psychiatric Problems (MOTHER/BIPOLAR) and Family Respiratory Disorders (ASTHMA); Negative Family Cardiac Disorders, Family Gastrointestinal Problems, Family Cancer, Family Surgery or Family Anesthesia Reaction Surgical History SURGICAL: Negative Section or Organ Transplant Social History SMOKING STATUS: Current some day smoker SUBSTANCE USE: does not use ED Exam General Limitations: Present no limitations General appearance: Present alert and in no apparent distress Head Head exam: Present atraumatic, normocephalic and normal inspection Eye Eye exam: Present normal appearance, PERRL and EOMI; Absent conjunctival injection ENT ENT exam: Present normal exam, normal oropharynx and mucous membranes moist Neck Neck exam: Present normal inspection, full ROM and trachea midline Chest Chest inspection: Present normal inspection and symmetric chest wall rise Respiratory Respiratory exam: Present normal lung sounds bilaterally; Absent respiratory distress Cardiovascular Cardiovascular exam: Present regular rate, normal rhythm and normal heart sounds Abdominal Exam Abdominal exam: Present soft and normal bowel sounds; Absent distention, tenderness, guarding, rebound or rigidity Extremities Exam Extremities exam: Present normal inspection and full ROM Back Exam Back exam: Present normal inspection and full ROM Neurological Exam Neurological exam: Present alert, oriented X3 and CN II-XII intact Psychiatric Psychiatric exam: Present normal affect and normal mood Skin Skin exam: Present warm, dry, intact and normal color Course Quality Measures none Orders Category Date Time Status EKG (ED ONLY) *Do not use* NOW Care 06/13/25 10:25 Completed EKG (ED Only) Stat Exams 06/13/25 10:25 Draft XR chest 2V Stat Exams 06/13/25 10:25 Completed CBC Stat Lab 06/13/25 10:45 Completed Comprehensive Metabolic Panel Stat Lab 06/13/25 10:45 Completed HCG,Qualitative Serum Stat Lab 06/13/25 10:45 Completed Troponin I Stat Lab 06/13/25 10:45 Completed Vital Signs Vital signs: Vital Signs Temperature 98.0 F 06/13/25 10:16 Pulse Rate 98 06/13/25 10:16 Respiratory Rate 16 06/13/25 10:16 Blood Pressure 145/84 H 06/13/25 10:16 Pulse Oximetry (%) 98 06/13/25 10:16 Oxygen Delivery Method Room Air 06/13/25 10:16 O2 saturation 98% room air within normal limits PROCEDURES: EKG Interpretation #1: Date of EK06/13/25 Time of EK:35 Rate: 99 Interpretation: Interpreted by me EKG Impression: Normal sinus rhythm, No acute ST-T changes, No ectopy, No ischemic changes, Normal QRS, Normal intervals and Normal axis Anxiety MDM Narrative MDM Narrative: 24-year-old female presents to the Emergency Department for complaints of heart palpitations patient ports history of anxiety patient reports she has 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 Patient reports no fever nausea vomiting no dizziness or weakness Clinically patient well-appearing does not appear ill or toxic patient is no tachycardia at this time Lab work and imaging obtained no acute emergent findings noted EKG unremarkable Patient discharged home in no distress to follow-up with primary care doctor in the next 24 to 48 hours and for any worsening symptoms to return to the ER immediately Patient data External records reviewed:: [facility] previous records Clinical information provided by:: patient Social determinants that could affect healthcare access:: none Patient has the following chronic illnesses:: See history How is presenting disease/condition affected by chronic disease/condition?: caused by Evaluation data The following diagnostics were reviewed and interpreted by me:: lab results, radiology exam(s) and EKG tracing(s) Lab and/or radiology exams considered but not ordered:: Labs, radiology, EKG obtained Interpretation Summary: Reviewed by me Medications / Prescriptions Medications or Prescriptions considered but not ordered:: Given no meds Medication administrations:: No meds Consultations Consultation(s) initiated? (list below): No Diagnosis Differential diagnosis anxiety: hyperventilation, panic disorder and acute anxiety Most likely diagnosis given after review of the tests above:: Anxiety Admission Indicated Admission indicated?: not indicated Admission Request Was there a request for admission?: No Disposition Plan Disposition Plan: Discharge Discharge Attestation Discharge Attestation: The patient and all family members were given an opportunity to ask questions and understood the discharge instructions. Discharge instructions specifically effects, indications for sooner follow up or return to the emergency department, and the expected course of current diagnosis. Patient condition: Stable Discharge Plan Plan Patient Disposition: HOME (Self Care) Discharge Disposition comment: Stable Prescriptions/Referrals Prescriptions/Med Rec: No Action Vitamin * 1 EACH tablet 1 tab PO QDAY Qty: 0 baclofen 5 mg tablet 5 mg PO BID PRN (Reason: muscle spasm) Qty: 14 0RF famotidine [Pepcid] 40 mg tablet 40 mg PO BID Qty: 20 0RF omeprazole 40 mg capsule,delayed release(DR/EC) 40 mg PO QDAY Qty: 30 0RF sucralfate [Carafate] 1 gram tablet 1 g PO Q6H PRN (Reason: abdominal pain) Qty: 60 0RF Rx Instructions: Take prior to meals and before bedtime as needed for abdominal pain. acetaminophen [Tylenol Extra Strength] 500 mg tablet 1,000 mg PO Q6H PRN (Reason: pain) Qty: 30 0RF ondansetron 4 mg tablet,disintegrating 4 mg PO Q6H PRN (Reason: nausea and vomiting) Qty: 10 0RF Referrals: Camille Cobos PA-C [Primary Care Provider, Family Practice] - In 1 week Problem List Clinical Impression: Palpitation Patient/Caregiver Discharge Instructions Education Materials: ED Palpitations Additional Instructions: Please follow up with your primary care doctor in the next 24-48hrs for any worsening symptoms return here immediately Print Language: Slovenian Stand Alone Forms: Lashanda Award Info., Patient Portal Info Letter PA/DEVELOPMENTAL SERVICES WORKER Supervising Physician PA/DEVELOPMENTAL SERVICES WORKER Supervising Physician: Dr. Meyer
[2025-06-13 11:55] VITALS: BP 122/78; PULSE 78
== END 2025-06-13 11:56 | disposition home or self-care (01) ==
PROVIDERS: Nurse Practitioner Primary Care; Emergency Provider Family Medicine; PCP Physician Assistant
DX: R00.2 Palpitations (principal); R07.9 Chest pain, unspecified
CPT/HCPCS: 36415; 71046; 80053; 84484; 84703; 85025; 93005; 99283